=== PATIENT | male | born 1950 | race Two or more races ===

== ENCOUNTER 2017-09-05 10:48 | Emergency (ER) | payer MEDICARE, OTHER ==
[2017-09-05 11:06] VITALS: BP 136/82
[2017-09-05] MEDS ORDERED: Acetaminophen/HYDROcodone 325-5 MG Tab PO ONE (12:11)
--- NOTE | 2017-09-05 12:11 | EDM.PDOC ---
ED HPI GENERAL MEDICAL PROBLEM - General Chief Complaint: Lower Extremity Injury/Pain Stated Complaint: LT KNEE PAIN Time Seen by Provider: 09/05/17 11:30 Source of Information: Reports: Patient History Limitations: Reports: No Limitations - History of Present Illness INITIAL COMMENTS - FREE TEXT/NARRATIVE: Patient is a 66 year old male who presents complaining of left anterior knee pain. States he has been involved in home construction project. Thus has been up and down ladders and working on his knees. States he has been experiencing pain to the anterior knee worsened with weight weightbearing and beadings. States today he was stepping into his pickup and felt a pop to the affected knee. Had severe pain that with inability to place only alittel weight. He has ambulated into the E.D. with a walker. States he has appt this coming week with a orthopedic surgeon and states he could not weight any longer to be evaluated. Has no previous history of injury to the affected knee. Left Knee Pain Score (Numeric/FACES): 7 - Related Data Home Meds: Home Meds Acetaminophen/HYDROcodone [[place] 325-5 MG] 1 tab PO Q6H PRN #12 tablet 09/05/17 [Rx] Past Medical History HEENT History: Reports: Impaired Vision Other HEENT History: wears glasses for reading - Past Surgical History GI Surgical History: Reports: Colonoscopy Other GI Surgeries/Procedures: colonoscopy 2008 Musculoskeletal Surgical History: Reports: Hip Replacement Other Musculoskeletal Surgeries/Procedures:: Total right hip replacement Social & Family History - Family History Family Medical History: Noncontributory - Tobacco Use Smoking Status *Q: Current Every Day Smoker Years of Tobacco use: 50 Packs/Tins Daily: 0.5 - Caffeine Use Caffeine Use: Reports: Coffee - Recreational Drug Use Recreational Drug Use: No Review of Systems - Review of Systems Review Of Systems: ROS reveals no pertinent complaints other than HPI. Musculoskeletal: Reports: Joint Pain (left anterior knee). Denies: Back Pain, Joint Swelling Skin: Reports: No Symptoms Neurological: Reports: Difficulty Walking. Denies: Numbness, Tingling ED EXAM, GENERAL - Physical Exam Exam: See Below Exam Limited By: No Limitations General Appearance: Alert, WD/WN, No Apparent Distress Ears: Hearing Grossly Normal Nose: Normal Inspection Throat/Mouth: Normal Voice, No Airway Compromise Neck: Normal Inspection, Supple Respiratory/Chest: No Respiratory Distress, Lungs Clear, Normal Breath Sounds, No Accessory Muscle Use Cardiovascular: Normal Peripheral Pulses, Regular Rate, Rhythm Peripheral Pulses: 2+: Posterior Tibial (L) Back Exam: Normal Inspection Extremities: Normal Inspection, Normal Range of Motion, No Pedal Edema, Normal Capillary Refill, Other (Minimal pain with palpation of the anterior knee along the insertion of the patellar tendon. Patella is freely movable with no crepitus. No joint laxity noted with provocative testing. No pain of appreciated with testing. ) Neurological: Alert, Oriented, CN II-XII Intact, Normal Cognition, No Motor/ Sensory Deficits. No: Normal Gait Psychiatric: Normal Affect, Normal Mood Skin Exam: Warm, Dry, Intact, Normal Color Course - Vital Signs Last Recorded V/S: Last Vital Signs Temp 98.6 F 09/05/17 10:59 Pulse 76 09/05/17 10:59 Resp 15 09/05/17 10:59 BP 136/82 09/05/17 10:59 Pulse Ox 97 09/05/17 10:59 - Orders/Labs/Meds Meds: Medications Discontinued Medications Generic Name Dose Route Start Last Admin Trade Name Freq PRN Reason Stop Dose Admin Hydrocodone Bitart/Acetaminophen 1 tab 09/05/17 12:11 09/05/17 12:42 [place] 325-5 Mg PO 09/05/17 12:12 1 tab ONETIME ONE Administration - Re-Assessments/Exams Free Text/Narrative Re-Assessment/Exam: Physical exam did not reveal any concerning findings. No studies will be obtained today. Patient 7 pain with weightbearing this treatment is nonweightbearing crutches to ambulate. Elevate when able to reduce any swelling or pain, ice to affected area as needed. Tylenol and ibuprofen and alternate fashion for discomfort, and [place] one tab every 6 hours for severe pain not managed with the above therapies. He will keep appointment with Dr. Mandujano is scheduled for next week. Discharge instructions as documented. 09/07/17 20:11 Departure - Departure Time of Disposition: 12:08 Disposition: Home, Self-Care 01 Condition: Good Clinical Impression: Sprain of knee Knee pain, left Qualifiers: Chronicity: acute Qualified Code(s): M25.562 - Pain in left knee - Discharge Information Prescriptions: Acetaminophen/HYDROcodone [[place] 325-5 MG] 1 tab PO Q6H PRN #12 tablet PRN Reason: Pain (Severe 7-10) Instructions: Crutch Use, [id number] Referrals: Raffi Huber MD [Primary Care Provider] - Forms: ED Department Discharge Additional Instructions: As discussed you're to be nonweightbearing until evaluated by Dr. Mandujano take this coming week. Utilize crutches to do so. Elevate the affected leg when able to reduce any swelling and pain. Apply ice to affected area as needed. Take Tylenol and ibuprofen in alternating fashion for discomfort. For severe pain not managed with the above therapies take [place] one tab every 6 hours as needed. Do not take Tylenol and [place] together. No driving while taking the [place]. Be advised taking narcotic medications while utilizing crutches increases her risk for falling. Return to the ED as needed for any new or worsening pain.
== END 2017-09-05 12:50 | disposition home or self-care (01) ==
LOC: JD.ED 10:48
DX: S83.92XA Sprain of unspecified site of left knee, initial encounter (principal); F17.210 Nicotine dependence, cigarettes, uncomplicated; X50.9XXA Other and unspecified overexertion or strenuous movements or postures, initial encounter
CPT/HCPCS: 99283; A9270

== ENCOUNTER 2020-07-31 06:48 | Day surgery (SDC) | payer MEDICARE, OTHER ==
--- NOTE | 2020-07-28 10:03 | PCM.PREANE ---
Preanesthetic Assessment - Procedure Proposed Procedure: EGD and Colonoscopy - Anesthesia/Transfusion/Family Hx Anesthesia History: Prior Anesthesia Without Reaction Family History of Anesthesia Reaction: No Transfusion History: Prior Transfusion Without Reaction Intubation History: Unknown - Review of Systems General: No Symptoms Pulmonary: No Symptoms ( Left lung Cancer with bone metastasis/Former smoker: quit 2017 (0.5ppd for 50 years.)/in remission for 3 years) Cardiovascular: No Symptoms (Mediastinal lymphadenopathy) Gastrointestinal: No Symptoms (Hiatal Hernia/GERD), Diarrhea, Difficulty Swallowing Neurological: No Symptoms (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), Numbness (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) /10) Other: Reports: Easy Bruising, Neck Pain - Physical Assessment NPO Status Date: 07/30/20 NPO Status Time: 22:15 Vital Signs: HR:75 Sat:95% B/P:107/71 Resp:16 Temp:97.7 Height: 1.68 m Weight: 55.792 kg ASA Class: 3 Mental Status: Alert & Oriented x3 Airway Class: Mallampati = 2 Dentition: Reports: Normal Dentition, [place]), [place] Thyro-Mental Finger Breadths: 3 Mouth Opening Finger Breadths: 3 ROM/Head Extension: Full Lungs: Clear to Auscultation, Normal Respiratory Effort Cardiovascular: Regular Rate, Regular Rhythm, No Murmurs - Lab Values: All labs reviewed and noted and within acceptable ranges to proceed with scheduled procedure. - Imaging/EKG Impressions: EKG: SR rate =55, abnormal R-wave progression - Allergies Allergies/Adverse Reactions: Allergies Allergy/AdvReac Type Severity Reaction Status Date / Time celecoxib [From Celebrex] Allergy Rash Verified 07/31/20 07:25 morphine Allergy Hives Verified 07/31/20 07:25 - Anesthesia Plan Pre-Op Medication Ordered: None - Acknowledgements Anesthesia Type Planned: MAC Pt an Appropriate Candidate for the Planned Anesthesia: Yes Alternatives and Risks of Anesthesia Discussed w Pt/Guardian: Yes Pt/Guardian Understands and Agrees with Anesthesia Plan: Yes PreAnesthesia Questionnaire HEENT History: Reports: Impaired Vision Other HEENT History: wears glasses for reading - Past Surgical History GI Surgical History: Reports: Colonoscopy Other GI Surgeries/Procedures: colonoscopy 2008 Musculoskeletal Surgical History: Reports: Amputation, Hip Replacement Other Musculoskeletal Surgeries/Procedures:: Total right hip replacement - HOME MEDS Home Medications: Home Meds Aspirin [Halfprin] 81 mg PO DAILY 06/04/18 [History] Calcium Carbonate/Vitamin D3 [Calcium Carbonate/Vitamin D 1250 MG-200 Unit] 1 tab PO BID 06/04/18 [History] Cholecalciferol (Vitamin D3) [Vitamin D3] 5,000 unit PO DAILY 06/04/18 [History] Gabapentin [Neurontin] 600 mg PO TID 06/04/18 [History] Multivitamin [One Daily Multivitamin] 1 each PO DAILY 06/04/18 [History] Baclofen 10 mg PO BID 07/28/20 [History] Naproxen Sodium [Aleve] 220 mg PO DAILY 07/28/20 [History] Omeprazole 20 mg PO DAILY 07/28/20 [History] traMADol [Ultram] 50 mg PO TID PRN 07/28/20 [History] - CURRENT (IN HOUSE) MEDS Current Meds: Current Medications Lactated Ringer's (Ringers, Lactated) 1,000 mls @ 125 mls/hr IV ASDIRECTED JOHNIE Stop: 07/31/20 23:00 Lidocaine/Sodium Bicarbonate (Buffered Lidocaine 1% In Ns 8.4%) 0.25 ml IDERM ONETIME PRN PRN Reason: Prior to IV Start Stop: 07/31/20 18:00 Sodium Chloride (Saline Flush) 10 ml FLUSH ASDIRECTED PRN PRN Reason: Keep Vein Open Stop: 07/31/20 18:00
[~2020-07-31 06:48] MED LIST: Lactated Ringers 1,000 ML IV SCH; Lidocaine 1%/Sod Bicarbonate in NS 8.4% 1 ML Syringe IDERM PRN; Sodium Chloride 0.9% 10 ML Syringe FLUSH PRN
[2020-07-31] MEDS ORDERED: Propofol 200 MG/20 ML SDV ONE ×2 (06:49→08:29)
[2020-07-31] MEDS ORDERED: Lidocaine 1% 2 ML SDV ONE (06:49)
[2020-07-31] MEDS ORDERED: fentaNYL 100 MCG/2 ML SDV ONE (06:50)
[2020-07-31] MEDS ORDERED: Glycopyrrolate 0.2 MG/ML SDV ONE (08:26)
[2020-07-31] MEDS ORDERED: ePHEDrine Sulfate/0.9% NaCl/Pf 25 MG/5 ML SYRINGE IV ONE (08:26)
--- NOTE | 2020-07-31 09:06 | PCM48HPAN ---
Post Anesthesia Note - EVALUATION WITHIN 48HRS OF ANESTHETIC Vital Signs in Normal Range: Yes Patient Participated in Evaluation: Yes Respiratory Function Stable: Yes Airway Patent: Yes Cardiovascular Function Stable: Yes Hydration Status Stable: Yes Pain Control Satisfactory: Yes Nausea and Vomiting Control Satisfactory: Yes Mental Status Recovered: Yes Vital Signs: Last Vital Signs Temp 36.5 C 07/31/20 07:00 Pulse 75 07/31/20 07:00 Resp 16 07/31/20 07:00 BP 107/71 07/31/20 07:00 Pulse Ox 95 07/31/20 07:00
[2020-07-31 09:26] VITALS: BP 90/54; PULSE 65
--- NOTE | 2020-07-31 09:45 | PROC ---
DATE OF OPERATION: 07/31/2020 SURGEON: Gemma Marte MD PREOPERATIVE DIAGNOSES: 1. Dysphagia. 2. Chronic diarrhea. POSTOPERATIVE DIAGNOSES: 1. Patchy gastritis in the antrum. 2. Medium size sliding hiatal hernia. 3. Normal colon. PROCEDURE: 1. Esophagogastroduodenoscopy. 2. Colonoscopy. ANESTHESIA: Monitored anesthesia care. COMPLICATIONS: None. INDICATION AND CONSENT: The patient is a 69-year-old male who has been having some difficulty swallowing especially pills intermittently. The patient also has been having chronic diarrhea up to about 3 loose to watery bowel movements daily for about 7 to 8 months. The patient present to my office for evaluation. He had never had EGD in the past for this problem. He had a colonoscopy in 2008 that was normal. The patient has since had left upper lobe lung cancer that was treated with chemotherapy and radiation. I discussed with the patient, recommended to proceed with EGD, possible dilation, and colonoscopy. We discussed risks, benefits, and alternatives, and informed consent was obtained. DESCRIPTION OF PROCEDURE: The patient was taken to the procedure room, placed in left lateral decubitus position. Following induction of monitored anesthesia care, the patient was padded appropriately and turned to the left lateral decubitus. We began with the EGD. Scope was inserted into the mouth and all the way to the second portion of duodenum. The duodenum was normal. Duodenal bulb was normal. Stomach, antrum had patchy gastritis with superficial ulcerations in the antrum and pre-pyloric region. This area was biopsied for pathologic examination. The stomach body appeared normal. In the antrum, there was a medium-sized sliding hiatal hernia without any Kush ulcers. We withdrew the scope back into the hernia. We did see a portion of the stomach slided up into the chest, was about 5 cm. The entire esophagus was normal. There were no strictures or any other obvious causes of dysphagia. At this point, the stomach was suctioned off any air, and the scope was withdrawn. EBL was minimal. Then, we proceeded with colonoscopy. Digital rectal exam was normal. Scope was inserted and taken all the way to the cecum and terminal ileum. Terminal ileum appeared normal. The cecum appeared normal. We biopsied this area of the cecum. Ascending colon appeared normal. We biopsied that area also randomly. Then, we went into the transverse colon. The proximal transverse colon was also biopsied as well as descending, sigmoid, and rectal. Otherwise, the colon was normal and retroflexion was normal. At this point, the air was suctioned out from the colon, and the colonoscope withdrawn. EBL was minimal. The patient will be allowed to go home and follow up in 2 weeks to discuss pathology results. We will start the patient on PPIs for his patchy gastritis. MMIRASEMA /[id number] MTDD
== END 2020-07-31 09:45 | disposition home or self-care (01) ==
LOC: JD.SDS 06:48
PROVIDERS: ATTEND Surgery
DX: K52.831 Collagenous colitis (principal); K52.9 Noninfective gastroenteritis and colitis, unspecified; K25.9 Gastric ulcer, unspecified as acute or chronic, without hemorrhage or perforation; K44.9 Diaphragmatic hernia without obstruction or gangrene; K29.70 Gastritis, unspecified, without bleeding; Z01.812 Encounter for preprocedural laboratory examination; Z20.828 Contact with and (suspected) exposure to other viral communicable diseases; Z98.890 Other specified postprocedural states; Z88.5 Allergy status to narcotic agent; Z91.09 Other allergy status, other than to drugs and biological substances; Z87.891 Personal history of nicotine dependence; Z79.899 Other long term (current) drug therapy
CPT/HCPCS: 43239; 45380; 88305; J0171; J2001; J2704; J3010; J3490; J7120; U0002; 00813

== ENCOUNTER 2021-03-30 10:24 | Emergency (ER) | payer MEDICARE, OTHER ==
[2021-03-30] MEDS ORDERED: Metoclopramide 10 MG/2 ML SDV IVPUSH ONE (10:31)
[2021-03-30] MEDS ORDERED: Acetaminophen 650 MG Supp RECTAL ONE ×2 (10:32→13:47)
--- NOTE | 2021-03-30 10:36 | EDM.PDOC ---
ED HPI GENERAL MEDICAL PROBLEM - General Chief Complaint: Neuro Symptoms/Deficits Stated Complaint: [facility] Time Seen by Provider: 03/30/21 10:30 Source of Information: Reports: EMS, Correction Records History Limitations: Reports: Altered Mental Status (Patient is not often able to offer any verbal responses and cannot obey commands.) - History of Present Illness INITIAL COMMENTS - FREE TEXT/NARRATIVE: 70-year-old male presents to the ED per [facility] from [facility] where he resides. Patient is known to have primary lung cancer ( L UL) of unclear time length. His states was greater than 2 years ago and he was treated with chemotherapy and radiation and did very well. He was off treatment for several months before recent PET scan identified recurrence of disease process. 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 He recently underwent resection of a tumor from the left frontal temporal lobe of his brain in [place] I believe 15 days ago.(March 15). He remained in hospital for 1 week. His reports that he did have a Morales catheter in place during that timeframe. Urine analysis was collected at the snf a week ago because of complaints of burning on voiding but apparently was negative for infection. It is unclear if the surgery was complicated in any way by seizures etc. He had his odalis removed from his left frontal craniotomy yesterday by Dr. Barth in clinic. This morning the nurses identified him to be unable to communicate verbally and very warm palpation. Temperature reported to be 104 degrees. It is unclear if he had a recent Morales catheter placement but is suspect after craniotomy and stay in the hospital. He is currently wearing a depends. At presentation to the ED he is unable to communicate or follow commands. He is indeed very warm to palpation. [facility] did a rapid Covid test on him this morning and it proved to be negative. It is unclear if he has been coughing. Is unclear how well he has been eating. He appears very thin. His CODE STATUS is listed as code level 1- full resuscitation. Patient did receive 1000 mg of acetaminophen at 0930 hrs. this morning at the snf. It is unclear if he took any of his normal medications this morning. Onset: Today, Sudden, Other (Is unclear when he spiked a fever but was appreciated by nursing staff this morning to be unable to verbalize any responses or obey commands. He subsequently was identified to be very warm to palpation.) Onset Date: 03/30/21 Duration: Hour(s):, Constant Location: Reports: Generalized (Presents with altered level of consciousness after recent brain tumor resection 2 weeks ago. Acute febrile illness) Quality: Reports: Other (Acute febrile illness with temperature of 104 degrees rectally) Severity: Severe Improves with: Reports: None Context: Reports: Other (Patient is chronically ill with primary lung cancer with metastatic disease to his brain and bone. Recent resection of a metastatic tumor left frontal temporal lobe in [place] apparently about 2 weeks ago. [place] were removed from the left frontal craniotomy wound by his primary care physician ). 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 this morning) - Related Data Allergies Allergy/AdvReac Type Severity Reaction Status Date / Time celecoxib [From Celebrex] Allergy Rash Verified 03/30/21 10:36 morphine Allergy Hives Verified 03/30/21 10:36 Home Meds: Home Meds Aspirin [Halfprin] 81 mg PO DAILY 06/04/18 [History] Calcium Carbonate/Vitamin D3 [Calcium Carbonate/Vitamin D 1250 MG - 5 MCG] 1 tab PO BID 06/04/18 [History] Cholecalciferol (Vitamin D3) [Vitamin D3] 5,000 unit PO DAILY 06/04/18 [History] Gabapentin [Neurontin] 600 mg PO TID 06/04/18 [History] Multivitamin [One Daily Multivitamin] 1 each PO DAILY 06/04/18 [History] Baclofen 10 mg PO BID 07/28/20 [History] Naproxen Sodium [Aleve] 220 mg PO DAILY 07/28/20 [History] Omeprazole 20 mg PO DAILY 07/28/20 [History] traMADol [Ultram] 50 mg PO TID PRN 07/28/20 [History] Past Medical History HEENT History: Reports: Impaired Vision Other HEENT History: wears glasses for reading Cardiovascular History: Reports: Other (See Below) Other Cardiovascular History: edema Respiratory History: Reports: Other (See Below) Other Respiratory History: left lung cancer, bronchoscopy Gastrointestinal History: Reports: None Genitourinary History: Reports: [employer]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 Musculoskeletal History: Reports: Back Pain, Chronic (Devious surgical fixation lumbar spine and discectomy for sciatica carried out in [place] 3-1/2 years ago), Other (See Below) (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 Treatment was chemotherapy and radiation to this area. 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 Dermatologic History: Reports: Other (See Below) Other Dermatologic History: epididymal cyst, skin discoloration, carbuncle - Past Surgical History GI Surgical History: Reports: Colonoscopy Other GI Surgeries/Procedures: colonoscopy 2008 Neurological Surgical History: Reports: Other (See Below) (Craniotomy 03/15/2021 for resection of a solitary metastatic brain tumor to the left temporal parietal lobe. This was carried out in [place]) Musculoskeletal Surgical History: Reports: Amputation (Below-knee left leg 3 years ago from septic emboli.), Hip Replacement (Right hip) Other Musculoskeletal Surgeries/Procedures:: Total right hip replacement Social & Family History - Family History Family Medical History: No Pertinent Family History - Caffeine Use Caffeine Use: Reports: Coffee - Living Situation & Occupation Living situation: Reports: , Extended Care Facility (Currently residing at [facility] only for the last week since having brain tumor resection) Occupation: Retired ED ROS GENERAL - Review of Systems Review Of Systems: Unable To Obtain (Patient is nonverbal and cannot obey commands at the time of exam.) Reason Not Obtained: Patient is nonverbal and cannot obey commands Constitutional: Reports: Fever ED EXAM, NEURO - Physical Exam Exam: See Below Exam Limited By: Altered Mental Status (Unable to respond verbally or obey commands. Stares off into space.) General Appearance: Obtunded, Mild Distress, Other Eye Exam: Bilateral Eye: Normal Inspection (No scleral icterus or blepharal pallor.), PERRL (Gaze palsy. Pupils are 6 mm and equal and respond to light equally.) Ears: Normal TMs Throat/Mouth: Other (Tongue is very dry and shriveled. No obvious oropharyngeal infection although he will not open his mouth to full extent and bites down on the tongue blade.) Head Exam: Other (He has a recent craniotomy surgical incision left frontal /temporal scalp. The wound is opened a little bit on the lateral aspect. It travels from the midline laterally anterior to his left ear.) Respiratory/Chest: No Respiratory Distress, No Accessory Muscle Use, Respiratory Distress ( Decreased air entry to the lower 25% lung cordova bilaterally. Mild tachypnea at 20/min.), Decreased Breath Sounds (He has shallow breathing.), Rhonchi (Few scattered rhonchi upper lobes of the lungs.), Other (For the cath left upper anterior chest). No: Lungs Clear, Normal Breath Sounds, Wheezing ( No wheezing.) Cardiovascular: Normal Peripheral Pulses, Regular Rate, Rhythm, No Edema, No Gallop, No Murmur, No Rub GI/Abdominal: Normal Bowel Sounds, Soft, Non-Tender, No Organomegaly, No Mass, Pelvis Stable, Other (Scaphoid abdomen.) (Male) Exam: No Hernia, Circumcised, Other (He is wearing a depends.) Neurological: Withdraws to Pain, Babinski (Negative on the right), Other (No sustained clonus on the right.). No: Alert, Normal Mood/Affect, Normal Dorsiflexion, CN II-XII Intact, Normal Plantar Flexion, Normal Gait, Normal Reflexes, No Motor/Sensory Deficits, Oriented x 3 DTR: 0: Bicep (R), Bicep (L), Patella (R), Achilles (R), Achilles (L) Back Exam: Normal Inspection, Other (Surgical scars to indicate previous L-spine surgery.) Extremities: Normal Inspection, Normal Range of Motion, No Pedal Edema, Other (Of right leg. Patient has an above-knee amputation left leg. The stump is well-healed and no signs of infection) Psychiatric: Other. No: Normal Affect, Normal Mood Skin Exam: Warm (Unable to ascertain as he is nonverbal), Dry, Intact, Normal Color, No Rash ED NEURO PROCEDURES - Lumbar Puncture Indication: Fever, Mental Status Change, Other (Recent neurosurgical intervention 15 days ago) Consent Obtained: Power of Life Science Technical Officer, Other (Spouse) Position: Left Prep: CDC/MBT Guidelines, Sterile Drapes, Betadine Local Anesthesia - Lidocaine (Xylocaine): 1% Plain Local Anesthetic Volume: 2cc Vertebral Interspace: L2/L3 Spinal Needle With Stylet: 22ga, 3.5 Inch (Adult) Number of Attempts: 1 Fluid Appearance: Clear Tubes Obtained: 4 Total Fluid Amount: 4cc Complications: No Sterile Dressing: Adhesive Dressing, None (Topical bacitracin and Band-Aid.) #1 Interpretation EKG Date: 03/30/21 Time: 10:58 Rhythm: NSR Rate (Beats/Min): 76 [place]: Normal P-Wave: Present (P wave is present but is inverted in leads V1 and V2 unclear etiology left atrial hypertrophy) QRS: Other (Q-wave appreciated in aVL only nonspecific early R wave transition V3 consider right ventricular hypertrophy versus septal hypertrophy pattern.) ST-T: Other (Diffuse repolarization abnormality throughout. T wave flattening in lead I and T wave inversion aVL.) QT: Prolonged (Moderately prolonged) EKG Interpretation Comments: Abnormal ECG Course - Vital Signs Last Recorded V/S: Last Vital Signs Temp 37.2 C 03/30/21 15:25 Pulse 69 03/30/21 15:25 Resp 16 03/30/21 15:25 BP 82/46 L 03/30/21 15:25 Pulse Ox 95 03/30/21 15:25 - Orders/Labs/Meds Orders: Active Orders 24 hr Category Date Time Status Insert Morales Catheter [Insert Urinary Catheter] [OM.PC] Care 03/30/21 11:58 Ordered Stat CULTURE BLOOD [BC] Stat Lab 03/30/21 10:53 Received CULTURE BLOOD [BC] Stat Lab 03/30/21 11:05 Received CULTURE CSF + SMEAR [RM] Urgent Lab 03/30/21 14:02 Results CULTURE URINE [RM] Stat Lab 03/30/21 11:55 Received Blood Culture x2 Reflex Set [OM.PC] Stat Oth 03/30/21 10:33 Ordered ED Lumbar Puncture Reflex [OM.PC] Click to Edit Oth 03/30/21 14:07 Ordered Labs: Laboratory Tests 03/30/21 03/30/21 03/30/21 Range/Units 10:34 10:53 10:53 WBC 26.69 H (4.23-9.07) K/mm3 RBC 4.59 L (4.63-6.08) M/mm3 Hgb 15.0 (13.7-17.5) gm/dl Hct 44.8 (40.1-51.0) % MCV 97.6 H (79.0-92.2) fl MCH 32.7 H (25.7-32.2) pg MCHC 33.5 (32.2-35.5) g/dl RDW Std Deviation 55.0 H (35.1-43.9) fL Plt Count 184 (163-337) K/mm3 MPV 9.2 L (9.4-12.3) fl Neutrophils % (Manual) 94 H (40-60) % Band Neutrophils % 1 (0-10) % Lymphocytes % (Manual) 4 L (20-40) % Atypical Lymphs % 0 % Monocytes % (Manual) 0 L (2-10) % Eosinophils % (Manual) 1 (0.8-7.0) % Basophils % (Manual) 0 L (0.2-1.2) Platelet Estimate Adequate RBC Morph Comment Normal ESR (0-15) mm/hr PT 12.1 H (9.7-12.0) SECONDS INR 1.13 APTT 27.6 (21.7-31.4) SECONDS Puncture Site Lt radial ABG pH 7.52 H (7.35-7.45) ABG pCO2 31.3 L (35.0-45.0) mmHg ABG pO2 67.0 L (80.0-100.0) mmHg ABG HCO3 25.1 (22.0-26.0) meq/L ABG O2 Saturation 95.6 L (96.0-97.0) % ABG Base Excess 3.3 H (-2-2.0) Obie Test Positive O2 Delivery Device Room air Sodium (136-145) mEq/L Potassium (3.5-5.1) mEq/L Chloride (98-107) mEq/L Carbon Dioxide (21-32) mEq/L Anion Gap (5-15) BUN (7-18) mg/dL Creatinine (0.7-1.3) mg/dL Est Cr Clr Drug Dosing mL/min Estimated GFR (MDRD) (>60) mL/min BUN/Creatinine Ratio (14-18) Glucose (80-115) mg/dL Serum Osmolality (280-300) mosm/kg Lactic Acid (0.4-2.0) mmol/L Calcium (8.5-10.1) mg/dL Magnesium (1.8-2.4) mg/dl Total Bilirubin (0.2-1.0) mg/dL AST (15-37) U/L ALT (16-63) U/L Alkaline Phosphatase (46-116) U/L Troponin I (0.00-0.056) ng/mL C-Reactive Protein (<1.0) mg/dL NT-Pro-B Natriuret Pep (0-125) pg/mL Total Protein (6.4-8.2) g/dl Albumin (3.4-5.0) g/dl Globulin gm/dL Albumin/Globulin Ratio (1-2) Urine Color (Yellow) Urine Appearance (Clear) Urine pH (5.0-8.0) Ur Specific [place] (1.005-1.030) Urine Protein (Negative) Urine Glucose (UA) (Negative) Urine Ketones (Negative) Urine Occult Blood (Negative) Urine Nitrite (Negative) Urine Bilirubin (Negative) Urine Urobilinogen (0.2-1.0) Ur Leukocyte Esterase (Negative) Urine RBC (0-5) /hpf Urine WBC (0-5) /hpf Ur Epithelial Cells (0-5) /hpf Urine Bacteria (FEW) /hpf Urine Mucus (FEW) /hpf CSF Tube Number CSF Volume ml CSF Appearance (CLEAR) CSF Color CSF Supernatant Appear CSF WBC (0-8) /uL CSF RBC (0-8) /mm3 CSF Seg Neutrophils (0-5) CSF Monos/Macrophages (0-5) CSF Diff Comment CSF Glucose (40-70) mg/dl CSF Total Protein (15-45) mg/dl Ketones (0.0-0.3) mM 03/30/21 03/30/21 03/30/21 Range/Units 10:53 10:53 10:53 WBC (4.23-9.07) K/mm3 RBC (4.63-6.08) M/mm3 Hgb (13.7-17.5) gm/dl Hct (40.1-51.0) % MCV (79.0-92.2) fl MCH (25.7-32.2) pg MCHC (32.2-35.5) g/dl RDW Std Deviation (35.1-43.9) fL Plt Count (163-337) K/mm3 MPV (9.4-12.3) fl Neutrophils % (Manual) (40-60) % Band Neutrophils % (0-10) % Lymphocytes % (Manual) (20-40) % Atypical Lymphs % % Monocytes % (Manual) (2-10) % Eosinophils % (Manual) (0.8-7.0) % Basophils % (Manual) (0.2-1.2) Platelet Estimate RBC Morph Comment ESR 59 H (0-15) mm/hr PT (9.7-12.0) SECONDS INR APTT (21.7-31.4) SECONDS Puncture Site ABG pH (7.35-7.45) ABG pCO2 (35.0-45.0) mmHg ABG pO2 (80.0-100.0) mmHg ABG HCO3 (22.0-26.0) meq/L ABG O2 Saturation (96.0-97.0) % ABG Base Excess (-2-2.0) Obie Test O2 Delivery Device Sodium 135 L (136-145) mEq/L Potassium 3.8 (3.5-5.1) mEq/L Chloride 98 (98-107) mEq/L Carbon Dioxide 27 (21-32) mEq/L Anion Gap 13.8 (5-15) BUN 24 H (7-18) mg/dL Creatinine 0.8 (0.7-1.3) mg/dL Est Cr Clr Drug Dosing 65.38 mL/min Estimated GFR (MDRD) > 60 (>60) mL/min BUN/Creatinine Ratio 30.0 H (14-18) Glucose 159 H (80-115) mg/dL Serum Osmolality 286 (280-300) mosm/kg Lactic Acid (0.4-2.0) mmol/L Calcium 9.7 (8.5-10.1) mg/dL Magnesium 1.5 L (1.8-2.4) mg/dl Total Bilirubin 1.3 H (0.2-1.0) mg/dL AST 17 (15-37) U/L ALT 31 (16-63) U/L Alkaline Phosphatase 93 (46-116) U/L Troponin I < 0.017 (0.00-0.056) ng/mL C-Reactive Protein 45.3 H* (<1.0) mg/dL NT-Pro-B Natriuret Pep 457 H (0-125) pg/mL Total Protein 6.8 (6.4-8.2) g/dl Albumin 2.5 L (3.4-5.0) g/dl Globulin 4.3 gm/dL Albumin/Globulin Ratio 0.6 L (1-2) Urine Color (Yellow) Urine Appearance (Clear) Urine pH (5.0-8.0) Ur Specific [place] (1.005-1.030) Urine Protein (Negative) Urine Glucose (UA) (Negative) Urine Ketones (Negative) Urine Occult Blood (Negative) Urine Nitrite (Negative) Urine Bilirubin (Negative) Urine Urobilinogen (0.2-1.0) Ur Leukocyte Esterase (Negative) Urine RBC (0-5) /hpf Urine WBC (0-5) /hpf Ur Epithelial Cells (0-5) /hpf Urine Bacteria (FEW) /hpf Urine Mucus (FEW) /hpf CSF Tube Number CSF Volume ml CSF Appearance (CLEAR) CSF Color CSF Supernatant Appear CSF WBC (0-8) /uL CSF RBC (0-8) /mm3 CSF Seg Neutrophils (0-5) CSF Monos/Macrophages (0-5) CSF Diff Comment CSF Glucose (40-70) mg/dl CSF Total Protein (15-45) mg/dl Ketones (0.0-0.3) mM 03/30/21 03/30/21 03/30/21 Range/Units 10:53 10:53 11:55 WBC (4.23-9.07) K/mm3 RBC (4.63-6.08) M/mm3 Hgb (13.7-17.5) gm/dl Hct (40.1-51.0) % MCV (79.0-92.2) fl MCH (25.7-32.2) pg MCHC (32.2-35.5) g/dl RDW Std Deviation (35.1-43.9) fL Plt Count (163-337) K/mm3 MPV (9.4-12.3) fl Neutrophils % (Manual) (40-60) % Band Neutrophils % (0-10) % Lymphocytes % (Manual) (20-40) % Atypical Lymphs % % Monocytes % (Manual) (2-10) % Eosinophils % (Manual) (0.8-7.0) % Basophils % (Manual) (0.2-1.2) Platelet Estimate RBC Morph Comment ESR (0-15) mm/hr PT (9.7-12.0) SECONDS INR APTT (21.7-31.4) SECONDS Puncture Site ABG pH (7.35-7.45) ABG pCO2 (35.0-45.0) mmHg ABG pO2 (80.0-100.0) mmHg ABG HCO3 (22.0-26.0) meq/L ABG O2 Saturation (96.0-97.0) % ABG Base Excess (-2-2.0) Obie Test O2 Delivery Device Sodium (136-145) mEq/L Potassium (3.5-5.1) mEq/L Chloride (98-107) mEq/L Carbon Dioxide (21-32) mEq/L Anion Gap (5-15) BUN (7-18) mg/dL Creatinine (0.7-1.3) mg/dL Est Cr Clr Drug Dosing mL/min Estimated GFR (MDRD) (>60) mL/min BUN/Creatinine Ratio (14-18) Glucose (80-115) mg/dL Serum Osmolality (280-300) mosm/kg Lactic Acid 2.0 (0.4-2.0) mmol/L Calcium (8.5-10.1) mg/dL Magnesium (1.8-2.4) mg/dl Total Bilirubin (0.2-1.0) mg/dL AST (15-37) U/L ALT (16-63) U/L Alkaline Phosphatase (46-116) U/L Troponin I (0.00-0.056) ng/mL C-Reactive Protein (<1.0) mg/dL NT-Pro-B Natriuret Pep (0-125) pg/mL Total Protein (6.4-8.2) g/dl Albumin (3.4-5.0) g/dl Globulin gm/dL Albumin/Globulin Ratio (1-2) Urine Color Yellow (Yellow) Urine Appearance Slt cloudy H (Clear) Urine pH 7.0 (5.0-8.0) Ur Specific [place] 1.025 (1.005-1.030) Urine Protein 2+ H (Negative) Urine Glucose (UA) 2+ H (Negative) Urine Ketones Negative (Negative) Urine Occult Blood 2+ H (Negative) Urine Nitrite Positive H (Negative) Urine Bilirubin Negative (Negative) Urine Urobilinogen 1.0 (0.2-1.0) Ur Leukocyte Esterase Trace H (Negative) Urine RBC 5-10 H (0-5) /hpf Urine WBC 10-20 H (0-5) /hpf Ur Epithelial Cells 0-5 (0-5) /hpf Urine Bacteria Many H (FEW) /hpf Urine Mucus Rare (FEW) /hpf CSF Tube Number CSF Volume ml CSF Appearance (CLEAR) CSF Color CSF Supernatant Appear CSF WBC (0-8) /uL CSF RBC (0-8) /mm3 CSF Seg Neutrophils (0-5) CSF Monos/Macrophages (0-5) CSF Diff Comment CSF Glucose (40-70) mg/dl CSF Total Protein (15-45) mg/dl Ketones 0.08 (0.0-0.3) mM 03/30/21 03/30/21 Range/Units 14:02 14:02 WBC (4.23-9.07) K/mm3 RBC (4.63-6.08) M/mm3 Hgb (13.7-17.5) gm/dl Hct (40.1-51.0) % MCV (79.0-92.2) fl MCH (25.7-32.2) pg MCHC (32.2-35.5) g/dl RDW Std Deviation (35.1-43.9) fL Plt Count (163-337) K/mm3 MPV (9.4-12.3) fl Neutrophils % (Manual) (40-60) % Band Neutrophils % (0-10) % Lymphocytes % (Manual) (20-40) % Atypical Lymphs % % Monocytes % (Manual) (2-10) % Eosinophils % (Manual) (0.8-7.0) % Basophils % (Manual) (0.2-1.2) Platelet Estimate RBC Morph Comment ESR (0-15) mm/hr PT (9.7-12.0) SECONDS INR APTT (21.7-31.4) SECONDS Puncture Site ABG pH (7.35-7.45) ABG pCO2 (35.0-45.0) mmHg ABG pO2 (80.0-100.0) mmHg ABG HCO3 (22.0-26.0) meq/L ABG O2 Saturation (96.0-97.0) % ABG Base Excess (-2-2.0) Obie Test O2 Delivery Device Sodium (136-145) mEq/L Potassium (3.5-5.1) mEq/L Chloride (98-107) mEq/L Carbon Dioxide (21-32) mEq/L Anion Gap (5-15) BUN (7-18) mg/dL Creatinine (0.7-1.3) mg/dL Est Cr Clr Drug Dosing mL/min Estimated GFR (MDRD) (>60) mL/min BUN/Creatinine Ratio (14-18) Glucose (80-115) mg/dL Serum Osmolality (280-300) mosm/kg Lactic Acid (0.4-2.0) mmol/L Calcium (8.5-10.1) mg/dL Magnesium (1.8-2.4) mg/dl Total Bilirubin (0.2-1.0) mg/dL AST (15-37) U/L ALT (16-63) U/L Alkaline Phosphatase (46-116) U/L Troponin I (0.00-0.056) ng/mL C-Reactive Protein (<1.0) mg/dL NT-Pro-B Natriuret Pep (0-125) pg/mL Total Protein (6.4-8.2) g/dl Albumin (3.4-5.0) g/dl Globulin gm/dL Albumin/Globulin Ratio (1-2) Urine Color (Yellow) Urine Appearance (Clear) Urine pH (5.0-8.0) Ur Specific [place] (1.005-1.030) Urine Protein (Negative) Urine Glucose (UA) (Negative) Urine Ketones (Negative) Urine Occult Blood (Negative) Urine Nitrite (Negative) Urine Bilirubin (Negative) Urine Urobilinogen (0.2-1.0) Ur Leukocyte Esterase (Negative) Urine RBC (0-5) /hpf Urine WBC (0-5) /hpf Ur Epithelial Cells (0-5) /hpf Urine Bacteria (FEW) /hpf Urine Mucus (FEW) /hpf CSF Tube Number 2 CSF Volume 4 ml CSF Appearance Clear (CLEAR) CSF Color Colorless CSF Supernatant Appear No xanthochromia CSF WBC 2 (0-8) /uL CSF RBC 1 (0-8) /mm3 CSF Seg Neutrophils 5.0 (0-5) CSF Monos/Macrophages 4.0 (0-5) CSF Diff Comment See note CSF Glucose 84.0 H (40-70) mg/dl CSF Total Protein 75.5 H (15-45) mg/dl Ketones (0.0-0.3) mM Meds: Medications Discontinued Medications Generic Name Dose Route Start Last Admin Trade Name Freq PRN Reason Stop Dose Admin Acetaminophen 650 mg 03/30/21 10:32 03/30/21 11:31 Acetaminophen 650 Mg Supp RECTAL 03/30/21 10:33 Not Given NOW ONE Acetaminophen 650 mg 03/30/21 13:47 03/30/21 13:55 Acetaminophen 650 Mg Supp RECTAL 03/30/21 13:48 650 mg NOW ONE Administration Dextrose/Sodium Chloride 1,000 mls @ 999 mls/hr 03/30/21 10:45 03/30/21 11:20 Dextrose 5%-Normal Saline IV 999 mls/hr ASDIRECTED JOHNIE Administration Ceftriaxone Sodium 2 gm/ 100 mls @ 200 mls/hr 03/30/21 12:02 03/30/21 12:33 Sodium Chloride IV 03/30/21 12:31 200 mls/hr ONETIME ONE Administration Sodium Chloride 1,000 mls @ 500 mls/hr 03/30/21 12:30 03/30/21 13:14 Normal Saline IV 500 mls/hr ASDIRECTED JOHNIE Administration Dextrose/Lactated Ringer's 1,000 mls @ 500 mls/hr 03/30/21 14:45 03/30/21 15:38 Dextrose 5%-Lactated Ringers IV 500 mls/hr ASDIRECTED JOHNIE Infusion Vancomycin HCl 1 gm/ 250 mls @ 166 mls/hr 03/30/21 15:45 03/30/21 15:43 Vancomycin HCl 250 mg/ Sodium IV 03/30/21 17:15 166 mls/hr Chloride ONETIME ONE Administration Metoclopramide HCl 7.5 mg 03/30/21 10:31 03/30/21 11:20 Metoclopramide 10 Mg/2 Ml Sdv IVPUSH 03/30/21 10:32 7.5 mg ONETIME ONE Administration Midazolam HCl 5 mg 03/30/21 13:30 03/30/21 15:18 Midazolam 1 Mg/Ml 5 Ml Sdv IVPUSH 03/30/21 13:31 Not Given ONETIME ONE Midazolam HCl 4 mg 03/30/21 13:50 03/30/21 13:57 Midazolam 1 Mg/Ml 2 Ml Sdv IVPUSH 03/30/21 13:51 1 mg ONETIME ONE Administration Midazolam HCl Confirm 03/30/21 13:49 03/30/21 15:19 Midazolam 1 Mg/Ml 2 Ml Sdv Administered 03/30/21 13:50 Not Given Dose 2 mg .ROUTE .STK-MED ONE Midazolam HCl Confirm 03/30/21 13:50 03/30/21 15:19 Midazolam 1 Mg/Ml 2 Ml Sdv Administered 03/30/21 13:51 Not Given Dose 2 mg .ROUTE .STK-MED ONE - Radiology Interpretation Free Text/Narrative:: 70-year-old male who with known primary cancer of the lung with 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 Patient recently underwent removal of a brain tumor left frontal and parietal lobe in [place] 15 days ago. [place] were removed from the craniotomy wound, which is on the left frontal scalp yesterday by Dr. Barth in clinic. It is unclear if the patient is receiving chemotherapy at this time. It is unclear if the surgery was complicated by development of seizure disorder etc. Upon arrival in the ED it is appreciated that he has a significant fever and I believe rectal temperature was 104. His vital signs otherwise show a heart rate in the 80s with a BP of 111/75. O2 sats are 98% on room air. Rhonchi upper lobes of the lungs. A rapid Covid screen was done at the snf this morning and proved to be negative. Patient has a Port-A-Cath left upper anterior chest which will be accessed for IV fluids. He will be given D5 normal saline at open. Septic work-up will be performed to include lactic acid and serum ketones and serum osmolality as well as blood cultures x2. Urine will be obtained by catheterization. Is unclear if he had a Morales catheter in for period of time after his craniotomy although this is suspect. His CODE STATUS is listed as code level 1 with full resuscitation. - Re-Assessments/Exams Free Text/Narrative Re-Assessment/Exam: 03/30/21 11:35: Patient's is now here in the department and able to fill in the blanks as far as history goes. 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 Patient responded well to chemotherapy and radiation to the tumor and was considered in remission for about the last year. 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 3 years ago he underwent lumbar spine surgery in [place] with fusion and discectomy. He apparently became septic and developed a septic embolus but went down his left leg and thus lost circulation below the knee. 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 He was walking with a prosthesis up until recently. Current weight is estimated to be about 113 pounds. 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 Apparently complains of some dysuria upon return to [facility] and a urine specimen was obtained but reportedly was negative for infection. 03/30/21 11:40 chest x-ray reveals hyperinflated lung cordova with sparsity of vasculature in both lungs. There is a Port-A-Cath left upper anterior chest. There is fibrosis/focal density left upper lobe of the lung I believe is from pr evious radiation therapy. Cardiac silhouette is within normal limits. Prominence of the right pulmonary artery is appreciated. Nodular masses noted within the left lung base measuring 1.7 cm. This apparently was present on CT for the last 2 to 3 years. White count returned elevated at 26.69. Differential pending hemoglobin is 15.0 with hematocrit of 44.8. MCV is slightly elevated 97.6. Platelet count 184,000. ABGs revealed a pH of 7.52 with a PCO2 of 31.3 and a PO2 of 67.0. Bicarb was 25.1. O2 sats were 95.[address] of the head performed without IV contrast reveals evidence of a left-sided craniotomy incision. There appears to be a level of fluid between the cranium and the brain left frontal parietal lobe in the distribution of a subdural hematoma. There is a hypodense circular lesion in the deep mid brain in the distribution of the left basal ganglia which appears to be creating about 1.5 cm of midline shift and near collapse of the left lateral ventricle. I will await the radiology over read of this CT. 03/30/21 11:50 Repeat temperature reveals him to be 102.9 rectally.PT is 12.1 with an INR of 1.13. PTT is 27.6. Sodium is 135 with a potassium of 3.8. Chloride is 98 with a bicarb of 27. Anion gap is 13.8. BUN is 24 with a creatinine of 0.8 and a GFR greater than 60. BUN/creatinine ratio is elevated at 30.0. Glucose elevated 159. Lactic acid is 2.0. Calcium is 9.7. Magnesium is low at 1.5. Bilirubin is mildly elevated 1.3. AST is 17 ALT is 31 and alk phosphatase is 93. Troponin I is less than 0.017. C-reactive protein is pending. Total protein is 6.8 with an albumin fraction of 2.5. 03/30/21 11:[address] Over read of the CT of the brain without contrast is now available. There is evidence of previous craniotomy on the left side. There is a small amount of low-density seen below the craniotomy site. The craniotomy site shows a slight area of increased density which most likely is due to an area of meningeal thickening. Low density is noted within the brain adjacent to the left lateral side which measures around 3.1 cm. Low-density continues to the left frontal convexity. Midline shift is seen to the right side within the frontal horn by approximately 7 mm. No definite intracranial hemorrhage is seen. Small amount of air is seen over the convexities. Visualized paranasal sinuses and mastoid sinuses show nothing acute. Low-density area adjacent to the left frontal horn measuring 3.1 cm. Uncertain if this is acute or old in contrast that he would be needed to further define if clinically indicated. This Finding causes midline shift of the frontal horn of the lateral ventricles by about 7 mm. 03/30/21 12:[address] of the brain without contrast to [facility] for neurosurgery to look at and give me an impression about the low- density lesion in the midbrain causing some mild midline shift. Urinalysis has been collected by catheterization. I am going to proceed with treating with IV antibiotics with Rocephin 2 g IV. Patient has completed first liter of IV fluid. Second liter will be just normal saline at 500 mils an hour. 03/30/21 12:31 Differential on the white count is 94% neutrophils and 1% bands cells. Sed rate is 59. Urinalysis shows slightly cloudy urine with 2+ proteinuria and 2+ glucosuria. 2+ occult blood positive nitrates and trace of leukocyte esterase. There is 5-10 RBCs per high-power field and 10-20 white blood cells per high-power field with many bacteria appreciated. Serum ketones came back at 0.08. CRP is pending. Serum osmolality came back at 286. 03/30/21 12:47 CRP is markedly elevated at 45.3. So far his blood pressure is holding up at 106/61. 02 sats are 97% on room air. Heart rate is 82 and sinus on the monitor. I have still not heard back from neurosurgery at [facility] in regards to CT scan of the brain done today. 03/30/21 13:15: There was trouble getting the CT images to [facility] from our PACS. They apparently received the films through our x-ray department. Dr. Lee from the department of neurosurgery had a look at the CT scan and believes that the changes that he sees are what he would expect postoperative. With his high fever and altered level of consciousness however with recent neurosurgical intervention he recommended doing a lumbar puncture to make sure there is no central nervous system infection. I did discuss this with his who will provide consent for the procedure. The patient himself is not able to understand or obey any commands. Plan will be to proceed with this under local anesthetic Free Text/Narrative Re-Assessment/Exam: 03/30/21 14:10: Lumbar puncture has been completed at the L2-L3 level under local anesthetic. Patient tolerated the procedure very well. Cerebral spinal fluid appeared to be clear without any xanthochromia. It will be sent to the lab for analysis of glucose, protein, white blood cell count and differential, Gram stain and culture. 03/30/21 14:45: I did speak with 1 call nurse at [facility] in [place]. She put me in touch with --hospitalist on-call. She has accepted this patient in transfer. We are awaiting his lumbar puncture results. They will be forwarded to her as soon as they become available. His blood pressure did seem to stay low after the lumbar puncture was performed and he did receive 1 mg of Versed to help facilitate the procedure. I suspect that it did interact with his gabapentin to create more of a degree of sedation then 1 with a test penny. Given 500 mill fluid bolus. When she was repositioned however her blood pressure returned to 123/82. As per our discussion I was going to give the patient 10 mg of dexamethasone intravenously but he got messed due to the busyness of the ED. Patient will be transferred to [facility] in [place] as soon as an ambulance becomes available for transport. 03/30/21: 15:50: Patient has left the department in route to [facility] in [facility]. 03/30/21 16:14 Is 84 CSF total protein is 75.5. 03/30/21 19:20 CSF evaluation reveals clear appearance with no xanthochromia. 2 white blood cells evident 1 red blood cell evident 5.0 segmented neutrophils 4.0 monocytes versus macrophages. Total cells counted 9. Gram stain was negative for any organisms. 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 Qualifiers: Laterality: left Qualified Code(s): C34.92 - Malignant neoplasm of unspecified part of left bronchus or lung - Discharge Information *PRESCRIPTION DRUG MONITORING PROGRAM REVIEWED*: Not Applicable *COPY OF PRESCRIPTION DRUG MONITORING REPORT IN PATIENT YAMILET: Not Applicable Referrals: Raffi Huber MD [Primary Care Provider] - Forms: ED Department Discharge Sepsis Event Note (ED) - Focused Exam Vital Signs: Vital Signs Temp Temp Temp Pulse Resp BP Pulse Ox 03/30/21 15:25 37.2 C 69 16 82/46 L 95 03/30/21 14:25 37.2 C 04/30/21 11:47 39.4 C H 91 16 134/71 98 03/30/21 10:29 38.6 C H 75 16 123/80 95 - My Orders Last 24 Hours: My Active Orders 03/30/21 10:33 Blood Culture x2 Reflex Set [OM.PC] Stat 03/30/21 10:53 CULTURE BLOOD [BC] Stat 03/30/21 11:05 CULTURE BLOOD [BC] Stat 03/30/21 11:55 CULTURE URINE [RM] Stat 03/30/21 11:58 Insert Morales Catheter [Insert Urinary Catheter] [OM.PC] Stat 03/30/21 14:02 CULTURE CSF + SMEAR [RM] Urgent 03/30/21 14:07 ED Lumbar Puncture Reflex [OM.PC] Click to Edit - Assessment/Plan Last 24 Hours: My Active Orders 03/30/21 10:33 Blood Culture x2 Reflex Set [OM.PC] Stat 03/30/21 10:53 CULTURE BLOOD [BC] Stat 03/30/21 11:05 CULTURE BLOOD [BC] Stat 03/30/21 11:55 CULTURE URINE [RM] Stat 03/30/21 11:58 Insert Morales Catheter [Insert Urinary Catheter] [OM.PC] Stat 03/30/21 14:02 CULTURE CSF + SMEAR [RM] Urgent 03/30/21 14:07 ED Lumbar Puncture Reflex [OM.PC] Click to Edit
[2021-03-30] MEDS ORDERED: Dextrose 5%-0.9% NaCl 1,000 ML IV SCH (10:45)
--- NOTE | 2021-03-30 11:43 | CR ---
Chest: Portable view of the chest was obtained. Comparison: No prior chest imaging is available. Nodular mass is noted within the left lung base measuring 1.7 cm. Focal density within the left upper lung is seen. Right lung is clear. Infusion port is noted. Heart size is normal. Bony structures are grossly intact. Impression: 1. Nodular mass at the left base. 2. Increased density of the left upper chest. Without old films uncertain if this is chronic or represents an acute pneumonia. 3. Infusion catheter. Diagnostic code #3
--- NOTE | 2021-03-30 11:52 | CT ---
Head CT Technique: Multiple axial sections through the brain were obtained. Intravenous contrast not utilized. Reconstructed coronal and sagittal images were obtained. Comparison: No previous intracranial imaging is available. Findings: There is evidence of previous craniotomy on the left side. There is a small amount of low density seen below the craniotomy site. The craniotomy site shows a slight area of increased density which most likely is due to an area of meningeal thickening. Low density is noted within the brain adjacent to the left lateral side which measures around 3.1 cm. Low density continues to the left frontal convexity. Midline shift is seen to the right side within the frontal horn by approximately 7 mm. No definite intracranial hemorrhage is seen. Small amount of air is seen over the convexities. Visualized paranasal sinuses and mastoid sinuses show nothing acute. Impression: 1. Prior left-sided craniotomy. 2. Meningeal thickening seen in the area of the craniotomy site with underlying low density. This is most likely due to previous surgery. 3. Low density adjacent to the left frontal horn measuring 3.1 cm. Uncertain if this is acute or old and contrast study would be needed to further define if clinically indicated. This finding causes midline shift of the frontal horn of the lateral ventricles by about 7 mm. 4. Intracranial air is noted. Diagnostic code #3
[2021-03-30] MEDS ORDERED: cefTRIAXone 2 GM in Sodium Chloride 0.9% 100 ML IV ONE (12:02)
[2021-03-30] MEDS ORDERED: Sodium Chloride 0.9% 1,000 ML IV SCH (12:30)
[2021-03-30] MEDS ORDERED: Midazolam 1 MG/ML 5 ML SDV IVPUSH ONE (13:30)
[2021-03-30] MEDS ORDERED: Midazolam 1 MG/ML 2 ML SDV ONE ×2 (13:49→13:50)
[2021-03-30] MEDS ORDERED: Midazolam 1 MG/ML 2 ML SDV IVPUSH ONE (13:50)
[2021-03-30] MEDS ORDERED: Dextrose 5%-Lactated Ringers 1,000 ML IV SCH (14:45)
[2021-03-30] MEDS ORDERED: Vancomycin 1.25 GM in Sodium Chloride 0.9% 500 ML IV ONE (14:47)
[2021-03-30 15:25] VITALS: BP 82/46; PULSE 69
[2021-03-30] MEDS ORDERED: Vancomycin 1 GM, Vancomycin 250 MG in Sodium Chloride 0.9% 250 ML IV ONE (15:45)
== END 2021-03-30 15:50 ==
LOC: JD.ED 10:24
DX: C34.92 Malignant neoplasm of unspecified part of left bronchus or lung (principal); N39.0 Urinary tract infection, site not specified; E83.42 Hypomagnesemia; Z79.82 Long term (current) use of aspirin; Z88.6 Allergy status to analgesic agent; Z88.5 Allergy status to narcotic agent
CPT/HCPCS: 36415; 36600; 62270; 70450; 71045; 80053; 81001; 82009; 82803; 82945; 83605; 83735; 83880; 83930; 84157; 84484; 85007; 85027; 85610; 85652; 85730; 86140; 87040; 87070; 87086; 87205; 89050; 93005; 96365; 96375; 99285; A9270; J0696; J2250; J2765; J3370; J7030; J7042; J7050; J7121; 87077; 87186; 93010